=== PATIENT | female | born 1930 | race Caucasian/White ===

== ENCOUNTER 2018-11-27 10:31 | Inpatient (IN) | payer OTHER ==
[2018-11-27 11:34] LABS: Absolute Lymphocytes (CBC) 1.2 K/uL (0.7-4.9); Absolute Monocytes 0.8 K/uL (0.1-1.3); Absolute Neutrophil 9.3 K/uL (1.8-8.0); Basophils % 0.3 % (0-1.3); Eosinophils % 0.6 % (0-4.4); Hematocrit 35.1 % (36.0-45.0); Lymphocytes % 10.9 % (15.3-44.8); MPV 9.3 fL (7.6-11.3); Monocytes % 6.9 % (3.3-12.3); RBC Red Blood Cell Count 4.46 M/uL (3.86-4.86)
[2018-11-27 11:48] LABS: AST/SGOT 10 U/L (15-37); Alkaline Phosphatase 54 U/L (45-117); BUN Blood Urea Nitrogen 54 mg/dL (7-18); Bicarbonate 32 mmol/L (21-32); Bilirubin Direct 0.2 mg/dL (0-0.2); Bilirubin Total 0.5 mg/dL (0.2-1.0); Glucose Level 139 mg/dL (74-106); Lipase 177 U/L (73-393); Potassium 3.9 mmol/L (3.5-5.1); Protein, Total 6.3 g/dL (6.4-8.2); Sodium Level 136 mmol/L (136-145)
[2018-11-27 11:55] LABS: ALT/SGPT < 6 U/L (12-78)
[2018-11-27] MEDS ORDERED: ONDANSETRON 4 MG/2 ML VIAL ONE (12:03)
--- NOTE | 2018-11-27 13:08 | RAD REPORT ---
EXAM DESCRIPTION: CT - Abdomen Pelvis W Contrast - 11/27/2018 12:54 pm CLINICAL HISTORY: Abdominal pain, nausea and vomiting, constipation COMPARISON: None. TECHNIQUE: Biphasic, helical CT imaging of the abdomen and pelvis was performed following 100 ml non -ionic IV contrast. Oral contrast was given. All CT scans are performed using dose optimization technique as appropriate and may include automated exposure control or mA/KV adjustment according to patient size. FINDINGS: Scarring and minimal nodularity in each lung base not regarded as suspicious. No pneumotho rax or pleural effusion. No cardiomegaly or pericardial effusion. Mild diffuse fatty infiltration pattern involves the liver. No focal liver lesions seen. No primary p ancreatic or splenic process seen. Gallbladder is distended. Gallstones can be occult. No biliary cj e dilatation. Minimal adrenal nodularity present not regarded as significant. Symmetric renal function is seen with no hydronephrosis or suspicious renal mass. No pyelonephritis o r acute parenchymal process. Bladder is mostly contracted. Multiple phleboliths involves the pelvic f pavan. No gastric dilatation or gastric wall thickening. Oral CT contrast has reached the mid small bowel le angella. No duodenal dilatation or wall thickening. There is dilation of the small bowel from ligament of Treitz to the terminal ileum. Liquid stool fills the cecum. There is irregular circumferential wall thickening of the ascending colon extending to the right side transverse colon. Left side colon is mo stly decompressed. There is a mild diverticulosis pattern of the sigmoid colon. No free air or pneumatosis. Trace amount of free fluid in the cul de sac and adjacent to the liver ca psule. No hernia, mass or bulky lymphadenopathy. Advanced bony degenerative changes are present. Dense arterial tree calcifications present. IMPRESSION: Nonocclusive irregular circumferential wall thickening involving the ascending colon, he patic flexure and right side of the transverse colon. Liquid stool distends the cecum and there is dilated small bowel pattern from ligament of Treitz to t he terminal ileum. Colon finding is nonspecific. Right-sided colitis would be favored. Malignancy is not excluded but do es not typically extend over this length of colon. Small bowel dilatation is favored to be ileus from the colon process rather than small bowel obstruction. Small quantity of free fluid in the pelvis. No free air or surgically emergent finding.
--- NOTE | 2018-11-27 14:15 | EDPHYS ---
Physician Documentation [facility] Name: Claire Jameson Age: 88 yrs Sex: Female : 1930 Arrival Date: 11/27/2018 Time: 10:33 Bed 2 Private MD: Driss Melgoza ED Physician Richard Owens HPI: 11/27 14:09 This 88 yrs old Female presents to ER via Ambulatory with complaints of pm1 Abdominal Pain, Constipation, Vomiting. 14:09 The patient presents with abdominal pain that is diffuse. Onset: The symptoms/episode pm1 began/occurred 5 day(s) ago. The symptoms do not radiate. Associated signs and symptoms: Pertinent positives: constipation, vomiting, Pertinent negatives: chest pain, dysuria, fever, shortness of breath. The symptoms are described as achy. Modifying factors: The symptoms are alleviated by nothing, the symptoms are aggravated by food. Severity of pain: in the emergency department the pain is actually worse. The patient has experienced similar episodes in the past, several times. The patient has not recently seen a physician, the patient's primary care provider is Dr. Melgoza. Patient with constipation for 1 week and then started having some abdominal distention and pain with vomiting when trying to drink for the past 4 days. Patient took some Colace and mag citrate to resolve constipation. Had some diarrhea x 2 this AM. Historical: - Allergies: 10:49 No Known Allergies; bp - Home Meds: 10:49 Atenolol Oral [Active]; Hydrochlorothiazide Oral [Active]; bp - PMHx: 10:49 Hypertension; bp - Immunization history:: Adult Immunizations up to date. - Social history:: Smoking status: Patient/guardian denies using tobacco. - Ebola Screening: : Patient negative for fever greater than or equal to 101.5 degrees Fahrenheit, and additional compatible Ebola Virus Disease symptoms Patient denies exposure to infectious person Patient denies travel to an Ebola-affected area in the 21 days before illness onset No symptoms or risks identified at this time. ROS: 14:09 Constitutional: Negative for fever, chills, and weight loss, Eyes: Negative for injury, pm1 pain, redness, and discharge, ENT: Negative for injury, pain, and discharge, Neck: Negative for injury, pain, and swelling, Cardiovascular: Negative for chest pain, palpitations, and edema, Respiratory: Negative for shortness of breath, cough, wheezing, and pleuritic chest pain. 14:09 Back: Negative for injury and pain, : Negative for injury, bleeding, discharge, and swelling, MS/Extremity: Negative for injury and deformity, Skin: Negative for injury, rash, and discoloration, Neuro: Negative for headache, weakness, numbness, tingling, and seizure. 14:09 Abdomen/GI: Positive for abdominal pain, nausea and vomiting, constipation, diarrhea x 2 today. Exam: 14:09 Constitutional: This is a well developed, well nourished patient who is awake, alert, pm1 and in no acute distress. Head/Face: Normocephalic, atraumatic. Eyes: Pupils equal round and reactive to light, extra-ocular motions intact. Lids and lashes normal. Conjunctiva and sclera are non-icteric and not injected. Cornea within normal limits. Periorbital areas with no swelling, redness, or edema. ENT: Nares patent. No nasal discharge, no septal abnormalities noted. Tympanic membranes are normal and external auditory canals are clear. Oropharynx with no redness, swelling, or masses, exudates, or evidence of obstruction, uvula midline. Mucous membranes moist. Neck: Trachea midline, no thyromegaly or masses palpated, and no cervical lymphadenopathy. Supple, full range of motion without nuchal rigidity, or vertebral point tenderness. No Meningismus. Chest/axilla: Normal chest wall appearance and motion. Nontender with no deformity. No lesions are appreciated. Cardiovascular: Regular rate and rhythm with a normal S1 and S2. No gallops, murmurs, or rubs. Normal PMI, no JVD. No pulse deficits. Respiratory: Lungs have equal breath sounds bilaterally, clear to auscultation and percussion. No rales, rhonchi or wheezes noted. No increased work of breathing, no retractions or nasal flaring. Abdomen/GI: Soft, non-tender, with normal bowel sounds. No distension or tympany. No guarding or rebound. No evidence of tenderness throughout. Back: No spinal tenderness. No costovertebral tenderness. Full range of motion. Skin: Warm, dry with normal turgor. Normal color with no rashes, no lesions, and no evidence of cellulitis. MS/ Extremity: Pulses equal, no cyanosis. Neurovascular intact. Full, normal range of motion. 14:09 Neuro: Orientation: is normal, Motor: is normal, moves all fours. Vital Signs: 10:49 BP 149 / 53; Pulse 74; Resp 16; Temp 98.6; Pulse Ox 96% ; Weight 57.61 kg; Height 5 ft. bp 7 in. (170.18 cm); 11:36 BP 145 / 46; Pulse 67; Resp 14; Pulse Ox 100% ; bp 12:19 BP 140 / 51; Pulse 66; Resp 12; Pulse Ox 94% ; bp 14:00 BP 139 / 46; Pulse 67; Resp 14; Pulse Ox 97% ; bp 15:00 BP 140 / 45; Pulse 68; Resp 16; Pulse Ox 95% ; bp 16:00 BP 156 / 53; Pulse 70; Resp 14; Pulse Ox 97% ; bp 17:00 BP 136 / 51; Pulse 66; Resp 16; Pulse Ox 96% ; bp 10:49 Body Mass Index 19.89 (57.61 kg, 170.18 cm) bp MDM: 10:53 Patient medically screened. pm1 14:04 Data reviewed: vital signs. pm1 14:13 Counseling: I had a detailed discussion with the patient and/or guardian regarding: the pm1 historical points, exam findings, and any diagnostic results supporting the discharge/admit diagnosis, lab results, radiology results, the need for further work-up and treatment in the hospital. 15:31 Physician consultation: Torin Graves DO was called at 15:31, was contacted at 15:31, pm1 regarding admission, patient's condition, would like further tests performed, Procalcitonin, in the emergency department to see patient at 15:31. 11/27 11:01 Order name: Basic Metabolic Panel; Complete Time: 11:58 pm1 11/27 11:01 Order name: CBC with Diff; Complete Time: 11:55 pm1 11/27 11:01 Order name: Creatinine for Radiology; Complete Time: 11:55 pm1 11/27 11:01 Order name: Hepatic Function; Complete Time: 11:58 pm1 11/27 11:01 Order name: Lipase; Complete Time: 11:58 pm1 11/27 14:46 Order name: Urine Microscopic Only; Complete Time: 16:06 pm1 11/27 11:01 Order name: CT Abd/Pelvis - W/Contrast: PO and IV contrast; Complete Time: 13:12 pm1 11/27 14:46 Order name: Urine Culture pm11/27 14:53 Order name: Urine Dipstick--Ancillary (enter results); Complete Time: 16:06 eb 11/27 15:28 Order name: Procalcitonin pm11/27 11:01 Order name: IV Saline Lock; Complete Time: 11:31 pm1 11/27 11:01 Order name: Labs collected and sent; Complete Time: 11:31 pm11/27 12:00 Order name: Urine Dipstick-Ancillary (obtain specimen); Complete Time: 14:59 pm1 Administered Medications: 11:45 Drug: Zofran 4 mg Route: IVP; Site: right forearm; bp 12:18 Follow up: Response: Nausea is decreased bp 12:18 Drug: NS 0.9% 500 ml Route: IV; Rate: bolus; Site: right forearm; bp 13:00 Follow up: IV Status: Completed infusion; IV Intake: 500ml bp 14:20 Drug: NS 0.9% 1000 ml Route: IV; Rate: 100 ml/hr; Site: right antecubital; bp 14:20 Drug: Flagyl 500 mg Volume: 100 ml; Route: IVPB; Rate: 200 ml/hr; Infused Over: 30 bp mins; Site: right antecubital; 16:12 Follow up: IV Status: Completed infusion; IV Intake: 100ml bp 15:45 Drug: LevaQUIN 500 mg Volume: 100 ml; Route: IVPB; Infused Over: 60 mins; Site: right bp antecubital; Disposition: 11/27/18 14:14 Hospitalization ordered by Torin Graves for Inpatient Admission. Preliminary diagnosis are Dehydration, Constipation, Unspecified abdominal pain, Right sided colitis, Vomiting. - Bed requested for Telemetry/MedSurg (Inpatient). - Status is Inpatient Admission. bp - Condition is Stable. - Problem is new. - Symptoms have improved. UTI on Admission? No Signatures: Dispatcher [employer] EDMS Ze Ramos, THERESA CO[employer]INGS pm1 Danica Lorenzo, TORIE RN df Ron Herzog RN RN bp Corrections: (The following items were deleted from the chart) 14:17 14:14 Hospitalization Ordered by Torin Graves DO for Inpatient Admission. Preliminary pm1 diagnosis is Dehydration; Constipation; Unspecified abdominal pain. Bed requested for Telemetry/MedSurg (Inpatient). Status is Inpatient Admission. Condition is Stable. Problem is new. Symptoms have improved. UTI on Admission? No. pm1 17:09 14:17 11/27/2018 14:14 Hospitalization Ordered by Torin Graves DO for Inpatient df Admission. Preliminary diagnosis is Dehydration; Constipation; Unspecified abdominal pain; Right sided colitis; Vomiting. Bed requested for Telemetry/MedSurg (Inpatient). Status is Inpatient Admission. Condition is Stable. Problem is new. Symptoms have improved. UTI on Admission? No. pm1 18:11 17:09 11/27/2018 14:14 Hospitalization Ordered by Torin Graves DO for Inpatient bp Admission. Preliminary diagnosis is Dehydration; Constipation; Unspecified abdominal pain; Right sided colitis; Vomiting. Bed requested for Telemetry/MedSurg (Inpatient). Status is Inpatient Admission. Condition is Stable. Problem is new. Symptoms have improved. UTI on Admission? No. df
--- NOTE | 2018-11-27 14:15 | ER ---
Nurse's Notes [facility] Name: Claire Jameson Age: 88 yrs Sex: Female : 1930 Arrival Date: 11/27/2018 Time: 10:33 Bed 2 Private MD: Driss Melgoza Diagnosis: Dehydration;Constipation;Unspecified abdominal pain;Right sided colitis;Vomiting Presentation: 11/27 10:47 Presenting complaint: Patient states: NAUSEA AND VOMITING WITH DIFFUSE ABD PAIN AFTER bp TAKING COLACE AND MAG CITRATE TO RESOLVE CONSTIPATION. Transition of care: patient was not received from another setting of care. Onset of symptoms is unknown. Risk Assessment: Do you want to hurt yourself or someone else? Patient reports no desire to harm self or others. Initial Sepsis Screen: Does the patient meet any 2 criteria? No. Patient's initial sepsis screen is negative. Does the patient have a suspected source of infection? No. Patient's initial sepsis screen is negative. Care prior to arrival: None. 10:47 Method Of Arrival: Ambulatory bp 10:47 Acuity: ADALBERTO 3 bp Triage Assessment: 10:49 General: Appears in no apparent distress. comfortable, Behavior is calm, cooperative, bp appropriate for age. Pain: Complains of pain in DIFFUSE ABDOMEN. EENT: No deficits noted. Neuro: Level of Consciousness is awake, alert, obeys commands, Oriented to person, place, time, situation, Appropriate for age. Cardiovascular: No deficits noted. Respiratory: Airway is patent Respiratory effort is even, unlabored, Respiratory pattern is regular, symmetrical. GI: Abdomen is non-distended, Abd is soft X 4 quads Abdomen is tender to palpation X 4 quads. : No signs and/or symptoms were reported regarding the genitourinary system. Derm: No deficits noted. Musculoskeletal: Circulation, motion, and sensation intact. Range of motion: intact in all extremities. Historical: - Allergies: 10:49 No Known Allergies; bp - Home Meds: 10:49 Atenolol Oral [Active]; Hydrochlorothiazide Oral [Active]; bp - PMHx: 10:49 Hypertension; bp - Immunization history:: Adult Immunizations up to date. - Social history:: Smoking status: Patient/guardian denies using tobacco. - Ebola Screening: : Patient negative for fever greater than or equal to 101.5 degrees Fahrenheit, and additional compatible Ebola Virus Disease symptoms Patient denies exposure to infectious person Patient denies travel to an Ebola-affected area in the 21 days before illness onset No symptoms or risks identified at this time. Screenin:52 Abuse screen: Denies threats or abuse. Denies injuries from another. Nutritional bp screening: No deficits noted. Tuberculosis screening: No symptoms or risk factors identified. Fall Risk None identified. Assessment: 10:52 General: SEE TRIAGE NOTE. bp 11:36 Reassessment: PO CONTRAST COMPLETED, CT NOTIFIED. bp 12:19 Reassessment: CT PENDING, VS STABLE ON MONITOR. bp 14:00 GI: Bowel sounds present X 4 quads. bp 14:17 Reassessment: PER RAD, COLITIS VS ILEUS NOTED ON CT. ABX INFUSING. bp 16:00 Reassessment: ADMIT IN PROCESS, ADMIT MD AT B/S. bp 17:15 Reassessment: ADMIT ON HOLD DUE TO PT ACUITY ON RECEIVING FLOOR. bp 17:53 Reassessment: REPORT TO FRANCISCO VOGT. bp Vital Signs: 10:49 BP 149 / 53; Pulse 74; Resp 16; Temp 98.6; Pulse Ox 96% ; Weight 57.61 kg; Height 5 ft. bp 7 in. (170.18 cm); 11:36 BP 145 / 46; Pulse 67; Resp 14; Pulse Ox 100% ; bp 12:19 BP 140 / 51; Pulse 66; Resp 12; Pulse Ox 94% ; bp 14:00 BP 139 / 46; Pulse 67; Resp 14; Pulse Ox 97% ; bp 15:00 BP 140 / 45; Pulse 68; Resp 16; Pulse Ox 95% ; bp 16:00 BP 156 / 53; Pulse 70; Resp 14; Pulse Ox 97% ; bp 17:00 BP 136 / 51; Pulse 66; Resp 16; Pulse Ox 96% ; bp 10:49 Body Mass Index 19.89 (57.61 kg, 170.18 cm) bp ED Course: 10:33 Patient arrived in ED. rg4 10:33 Driss Melgoza DO is Private Physician. rg4 10:43 [facility]. pm1 10:43 Richard Owens MD is Attending Physician. pm1 10:47 Ron Herzog, TORIE is Primary Nurse. bp 10:48 Triage completed. bp 10:49 Arm band placed on. bp 10:52 Patient has correct armband on for positive identification. Placed in gown. Bed in low bp position. Call light in reach. Side rails up X2. Adult w/ patient. 11:20 Inserted saline lock: 20 gauge in right forearm, using aseptic technique. Blood bp collected. 12:53 CT completed. Patient tolerated procedure well. Patient moved to CT via stretcher. Patient moved back from CT. 12:57 CT Abd/Pelvis - W/Contrast: PO and IV contrast In Process Unspecified. EDMS 14:13 Torin Graves DO is Hospitalizing Provider. pm1 14:50 Urine collected: clean catch specimen, evens colored. dh3 17:12 No provider procedures requiring assistance completed. Patient admitted, IV remains in bp place. Administered Medications: 11:45 Drug: Zofran 4 mg Route: IVP; Site: right forearm; bp 12:18 Follow up: Response: Nausea is decreased bp 12:18 Drug: NS 0.9% 500 ml Route: IV; Rate: bolus; Site: right forearm; bp 13:00 Follow up: IV Status: Completed infusion; IV Intake: 500ml bp 14:20 Drug: NS 0.9% 1000 ml Route: IV; Rate: 100 ml/hr; Site: right antecubital; bp 14:20 Drug: Flagyl 500 mg Volume: 100 ml; Route: IVPB; Rate: 200 ml/hr; Infused Over: 30 bp mins; Site: right antecubital; 16:12 Follow up: IV Status: Completed infusion; IV Intake: 100ml bp 15:45 Drug: LevaQUIN 500 mg Volume: 100 ml; Route: IVPB; Infused Over: 60 mins; Site: right bp antecubital; Intake: 13:00 IV: 500ml; Total: 500ml. bp 16:12 IV: 100ml; Total: 600ml. bp Outcome: 14:14 Decision to Hospitalize by Provider. pm1 17:54 Admitted to Med/surg accompanied by tech, family with patient, via wheelchair, room bp 410, with chart, Report called to FRANCISCO VOGT 17:54 Condition: stable 17:54 Instructed on the need for admit. 18:11 Patient left the ED. bp Signatures: Dispatcher [employer] EDMS Tanisha Story Patrick, ETL APPLICATION DEVELOPER ETL APPLICATION DEVELOPER pm1 Kelsea Mcdonald rg4 Deborah Beauchamp dh3 Ron Herzog, RN RN bp
[2018-11-27] MEDS ORDERED: METRONIDAZOLE 500mg IVPB 500 MG/100 ML BAG IV ONE (14:35)
[2018-11-27] MEDS ORDERED: Levofloxacin500mg IV 500 MG/100 ML BAG IV ONE (14:35)
[2018-11-27] MEDS ORDERED: NA CHLORIDE 0.9% 1,000 ML ONE (14:36)
[2018-11-27 15:39] LABS: Urine Blood TRACE (NEG); Urine Glucose NEGATIVE (NEG); Urine Protein TRACE (NEG)
[2018-11-27 15:39] LABS: Urine Bacteria 20-50 /HPF (<20); Urine Culture Reflex Order NOT NEEDED; Urine Mucus 2+ /HPF (NONE SEEN)
--- NOTE | 2018-11-27 16:22 | P.HP ---
Certification for Inpatient Patient admitted to: Inpatient With expected LOS: >2 Midnights Patient will require the following post-hospital care: None Practitioner: I am a practitioner with admitting privileges, knowledge of patient current condition, hospital course, and medical plan of care. Services: Services provided to patient in accordance with Admission requirements found in Title 42 Section 412.3 of the Code of Federal Regulations Patient History Date of Service: 11/27/18 Primary Care Provider: Dr. Melgoza Reason for admission: Abdominal pain, nausea, vomiting and diarrhea History of Present Illness: 88-year-old female presented to the emergency room with multiple complaints. Patient reported nausea and vomiting since Saturday. She was not able to keep anything down. She reported some mild distention and constipation. Bloating was also noted. She took Colace and Mag citrate yesterday. She was to come to the ER but started to have diarrhea. Subjective fever noted. Patient came to the ER for further evaluation. In the ER patient evaluated. White count 11.4, hemoglobin 11.1. Sodium 136, potassium 2.9, BUN of 54, creatinine 1.36 with a GFR 36. Urinalysis shows possible UTI. CT scan shows suspected right-sided colitis with ileus. No bowel obstruction identified. Patient was admitted for treatment. When I saw the patient ER, she did not appear septic. Patient appeared comfortable. Patient reports no prior history of colonoscopy. She reports multiple members in the family with colon cancer. Patient with history of hypertension but is not taking her medication over the past week. Patient with reports no melena, hematemesis or rectal bleeding. Home medications list reviewed: Yes - Past Medical/Surgical History Diabetic: No -: Hypertension -: Hysterectomy Psychosocial/ Personal History: Patient is a . She has 3 children. - Family History Father -: Cancer (Colon cancer) Brother -: Cancer (Colon cancer) - Social History Smoking Status: Never smoker Alcohol use: No CD- Drugs: No Caffeine use: Yes Place of Residence: Home Review of Systems General: Weakness, As per HPI Eyes: Unremarkable ENT: Unremarkable Respiratory: Unremarkable Cardiovascular: Unremarkable Gastrointestinal: Nausea, Vomiting, Abdominal Pain, Diarrhea, As per HPI Genitourinary: Unremarkable Musculoskeletal: Unremarkable Neurological: Unremarkable Lymphatics: Unremarkable Physical Examination - Physical Exam General: Alert, In no apparent distress, Oriented x3, Cooperative HEENT: Atraumatic, Normocephalic, Other (Dry mucous membranes), EOMI Neck: Supple, No Thyromegaly Respiratory: Clear to auscultation bilaterally, Normal air movement Cardiovascular: Normal pulses, Regular rate/rhythm Gastrointestinal: Normal bowel sounds, Soft and benign, No masses, No rebound, No guarding, Distended (Minimal distention), Tenderness (Minimal tenderness to the right upper quadrant) Musculoskeletal: No erythema, No tenderness, No warmth Integumentary: No tenderness/swelling, No erythema, No warmth, No cyanosis Neurological: Normal speech, Normal strength at 5/5 x4 extr, Normal tone, Normal affect - Studies Laboratory Data (last 24 hrs) 11/27/18 11:18: Creatinine 1.38 H 11/27/18 11:18: WBC 11.4 H, Hgb 11.1 L, Hct 35.1 L, Plt Count 254 11/27/18 11:18: Sodium 136, Potassium 3.9, BUN 54 H, Creatinine 1.41 H, Glucose 139 H, Total Bilirubin 0.5, AST 10 L, ALT < 6 L, Alkaline Phosphatase 54, Lipase 177 Assessment and Plan - Plan Impression: Abdominal pain, nausea, vomiting and diarrhea secondary to right-sided colitis with possible ileus complicated with possible UTI Acute kidney injury likely due to related to dehydration Hypertension Plan: Abdominal pain, nausea, vomiting and diarrhea secondary to right-sided colitis with possible ileus complicated with possible UTI: Patient will be admitted. Will continue with IV fluids and antibiotic therapy-Cipro and Flagyl. Blood and urine cultures obtained. Will monitor closely. Will keep the patient NPO. Will consult surgery to further evaluate. Await recommendations from surgery prior to advancing her diet. Will provide IV PPI. Will continue monitor closely. Monitor serial examinations. Patient may require NG tube if with increased abdominal bloating, nausea and vomiting. If with worsening pain patient may require surgical intervention. Patient will need colonoscopy in 4- 6 weeks if her condition improves as there is a strong family history of colon cancer. Patient reports no prior colonoscopy. Acute kidney injury likely due to related to dehydration: Continue with IV fluids. Will monitor and adjust appropriately. Replace electrolytes. Hypertension: Will provide IV medication. Hold atenolol and hydrochlorothiazide. Discharge Plan: Home Plan to discharge in: Greater than 2 days - Advance Directives Does patient have a Living Will: No Does patient have a Durable POA for Healthcare: No - Code Status/Comfort Care Code Status Assessed: Yes (Patient full code.) Time Spent Managing Pts Care (In Minutes): 55
[2018-11-27] MEDS ORDERED: ACETAMINOPHEN 500 MG TAB PO PRN (18:14)
[2018-11-27] MEDS ORDERED: MORPHINE 2 MG/ML SYR IV PRN (18:14)
[2018-11-27] MEDS ORDERED: ACETAMINOPHEN 650MG/RECT SUPP PR PRN (18:14)
[2018-11-27] MEDS: NA CHLORIDE 0.9% 1,000 ML IV SCH (18:25)
[2018-11-27] MEDS ORDERED: METRONIDAZOLE 500mg IVPB 500 MG/100 ML BAG IV SCH (18:37)
[2018-11-27] MEDS ORDERED: ENOXAPARIN 40 MG/0.4 ML SQ SCH (18:45)
[2018-11-27] MEDS: ENOXAPARIN 30 MG/0.3 ML SQ SCH (18:46)
[2018-11-27 19:47] LABS: Ferritin 21.8 ng/mL (8-388); Thyroid Stimulating Hormone 0.081 uIU/mL (0.360-3.740)
[2018-11-27] MEDS ORDERED: Ciprofloxacin 200mg IV 200 MG/100 ML IV.SOLN. IV SCH (21:00)
[2018-11-27] MEDS ORDERED: FAMOTIDINE 20 MG/2 ML VIAL IV ONE (21:00)
[2018-11-27] MEDS ORDERED: FAMOTIDINE 20 MG/2 ML VIAL IV SCH (21:00)
[2018-11-28 00:54] VITALS: BMI 21.8
[2018-11-28] MEDS: METRONIDAZOLE 500mg IVPB 500 MG/100 ML BAG IV SCH ×3 (02:00→17:03)
[2018-11-28] MEDS: NA CHLORIDE 0.9% 1,000 ML IV SCH ×3 (02:40→13:42)
[2018-11-28] MEDS: ONDANSETRON 4 MG/2 ML VIAL IV PRN (04:10)
[2018-11-28 05:54] LABS: Absolute Lymphocytes (CBC) 0.9 K/uL (0.7-4.9); Absolute Monocytes 0.9 K/uL (0.1-1.3); Absolute Neutrophil 6.3 K/uL (1.8-8.0); Basophils % 0.6 % (0-1.3); Eosinophils % 2.6 % (0-4.4); Lymphocytes % 11.3 % (15.3-44.8); MPV 9.1 fL (7.6-11.3); Monocytes % 10.6 % (3.3-12.3)
[2018-11-28 06:10] LABS: Magnesium 2.9 mg/dL (1.8-2.4); Potassium 3.4 mmol/L (3.5-5.1)
[2018-11-28] MEDS ORDERED: KCL 20 MEQ/100 mL IVPB 20 MEQ/100 ML BAG IV SCH (07:30)
[2018-11-28] MEDS ORDERED: NA CHLORIDE 0.9% 1,000 ML with POTASSIUM CL 40 MEQ IV SCH ×2 (08:00)
[2018-11-28] MEDS: Ciprofloxacin 200mg IV 200 MG/100 ML IV.SOLN. IV SCH (08:31)
[2018-11-28] MEDS: ENOXAPARIN 30 MG/0.3 ML SQ SCH (08:31)
[2018-11-28] MEDS ORDERED: FAMOTIDINE 20 MG/2 ML VIAL IV SCH (09:00)
--- NOTE | 2018-11-28 13:58 | P.PN ---
Date of Service: 11/28/18 S: Patient apparently feel somewhat better today. Vital signs are stable. Having diarrhea. O: Patient is shower, will recheck earlier today or tomorrow. A: Partial obstruction appears to be relieved P: Continue current therapy, patient will require a colonoscopy at some point. Probably as an outpatient.
--- NOTE | 2018-11-28 16:06 | P.PN ---
Subjective Date of Service: 11/28/18 Primary Care Provider: Dr. Melgoza Chief Complaint: Abdominal pain, nausea, vomiting and diarrhea Subjective: Other (Patient improving. Less diarrhea. No significant nausea vomiting.) Physical Examination - Vital Signs Temperature: 98.9 F Blood Pressure: 140/60 Pulse: 71 Respirations: 18 Pulse Ox (%): 96 - Physical Exam General: Alert, In no apparent distress, Oriented x3, Cooperative HEENT: Atraumatic Neck: Supple Respiratory: Clear to auscultation bilaterally, Normal air movement Cardiovascular: Normal pulses, Regular rate/rhythm Gastrointestinal: Normal bowel sounds, Soft and benign, Non-distended, No masses , No rebound, No guarding, Tenderness (Less pain throughout) Musculoskeletal: No erythema, No tenderness, No warmth Integumentary: No tenderness/swelling, No erythema, No warmth, No cyanosis Neurological: Normal speech, Normal strength at 5/5 x4 extr, Normal tone, Normal affect - Studies Medications List Reviewed: Yes Assessment & Plan Discharge Plan: Home Plan to discharge in: 48 Hours Physician Review Additional Text: Impression: Abdominal pain, nausea, vomiting and diarrhea secondary to right-sided colitis with possible ileus complicated with possible UTI Acute kidney injury likely due to related to dehydration Hypertension Plan: Abdominal pain, nausea, vomiting and diarrhea secondary to right-sided colitis with possible ileus complicated with possible UTI: Patient continues to improve. Continue IV fluids and antibiotic therapy. Blood and urine cultures obtained. Stool cultures also obtained. Case discussed with surgery. Will slowly advance diet. Encourage ambulation with physical therapy. Patient will need colonoscopy in 4-6 weeks if her condition improves as there is a strong family history of colon cancer. Patient reports no prior colonoscopy. Acute kidney injury likely due to related to dehydration: This continues to improve Continue with IV fluids. Will monitor and adjust appropriately. Replace electrolytes. Hypertension: Will start low-dose carvedilol. Discontinue atenolol/ hydrochlorothiazide Time Spent Managing Pts Care (In Minutes): 55
[2018-11-28] MEDS: CARVEDILOL 3.125 MG TAB PO SCH (17:03)
[2018-11-29] MEDS: METRONIDAZOLE 500mg IVPB 500 MG/100 ML BAG IV SCH ×3 (00:08→17:00)
[2018-11-29] MEDS: NA CHLORIDE 0.9% 1,000 ML IV SCH (00:41)
[2018-11-29 05:02] LABS: Absolute Monocytes 0.5 K/uL (0.1-1.3); Absolute Neutrophil 2.9 K/uL (1.8-8.0); Basophils % 0.6 % (0-1.3); Eosinophils % 7.3 % (0-4.4); Hematocrit 32.6 % (36.0-45.0); Lymphocytes % 20.7 % (15.3-44.8); MPV 9.3 fL (7.6-11.3); Monocytes % 10.4 % (3.3-12.3); RBC Red Blood Cell Count 4.05 M/uL (3.86-4.86)
[2018-11-29] MEDS: ONDANSETRON 4 MG/2 ML VIAL IV PRN (05:03)
[2018-11-29] MEDS: CARVEDILOL 3.125 MG TAB PO SCH (05:03)
[2018-11-29 05:26] LABS: Magnesium 2.5 mg/dL (1.8-2.4); Potassium 3.7 mmol/L (3.5-5.1)
[2018-11-29] MEDS ORDERED: FAMOTIDINE 20 MG TAB PO SCH (09:00)
[2018-11-29] MEDS ORDERED: MULTIVIT W/ MINERAL TAB PO SCH (09:00)
[2018-11-29] MEDS ORDERED: POTASSIUM CL SA 10 MEQ TAB PO ONE (09:00)
--- NOTE | 2018-11-29 10:30 | P.PN ---
Subjective Date of Service: 11/29/18 Primary Care Provider: Dr. Melgoza Chief Complaint: Abdominal pain, nausea, vomiting and diarrhea Subjective: Improving (Patient tolerating her diet. Diarrhea improved.) Physical Examination - Vital Signs Temperature: 98.4 F Blood Pressure: 169/70 Pulse: 68 Respirations: 16 Pulse Ox (%): 95 - Physical Exam General: Alert, In no apparent distress, Oriented x3, Cooperative HEENT: Atraumatic Neck: Supple Respiratory: Clear to auscultation bilaterally, Normal air movement Cardiovascular: Normal pulses, Regular rate/rhythm Gastrointestinal: Normal bowel sounds, Soft and benign, Non-distended, No tenderness, No masses, No rebound, No guarding Musculoskeletal: No erythema, No tenderness, No warmth Integumentary: No tenderness/swelling, No erythema, No warmth, No cyanosis Neurological: Normal speech, Normal strength at 5/5 x4 extr, Normal tone, Normal affect - Studies Microbiology Data (last 24 hrs): 11/27/18 14:40 Clean Catch Urine [place] Count - Final BETWEEN 10,000 & 100,000 CFU/ML 11/27/18 14:40 Clean Catch Urine - Final Escherichia Coli Medications List Reviewed: Yes Assessment & Plan Discharge Plan: Home Plan to discharge in: 24 Hours Physician Review Additional Text: Impression: Abdominal pain, nausea, vomiting and diarrhea secondary to right-sided colitis with possible ileus complicated with UTI, culture positive for E coli Acute kidney injury likely due to related to dehydration Hypertension Anemia with iron and B12 deficiency Possible hyperthyroidism Plan: Abdominal pain, nausea, vomiting and diarrhea secondary to right-sided colitis with possible ileus complicated with UTI, culture positive for E coli: Patient continues to improve. Continue IV antibiotic therapy and fluids. Will advance diet. Encourage ambulation with physical therapy. Encourage incentive spirometer. Anticipate discharge in the next 24 hr. No surgical intervention required at this time. Patient will need colonoscopy in 4-6 weeks to further evaluate especially with her strong family history of colon cancer. Patient with no prior colonoscopy. Acute kidney injury likely due to related to dehydration: Improved. Continue with IV fluids. Will monitor and adjust electrolytes. Hypertension: Continue to monitor and adjust carvedilol. Discontinue atenolol/ hydrochlorothiazide Anemia with iron and B12 deficiency: Will start iron and B12 supplementation. Will monitor closely. Possible hyperthyroidism: Will recommend for lab-tsh and free T4 to be rechecked as an outpatient. If still abnormal patient will require endocrinology evaluation. Time Spent Managing Pts Care (In Minutes): 55
[2018-11-29] MEDS: NACHLORIDE 0.45% 1,000 ML IV SCH (10:33)
[2018-11-29] MEDS: LACTOBACILLUS/ACIDOPHILUS TAB PO SCH ×2 (10:36→21:42)
[2018-11-29] MEDS: CYANOCOBALAMIN 1,000 MCG TAB PO SCH (10:36)
[2018-11-29] MEDS: ENOXAPARIN 30 MG/0.3 ML SQ SCH (10:41)
[2018-11-29] MEDS: Ciprofloxacin 200mg IV 200 MG/100 ML IV.SOLN. IV SCH (12:24)
--- NOTE | 2018-11-29 16:28 | P.PN ---
Date of Service: 11/29/18 S: Patient continues to improve. Still having some diarrhea. Denies any abdominal pain at this time. Tolerating the diet she is on. O: Abdomen remains soft, vital signs are stable, white cell count has resolve A: She is much improved P: Patient appears to be improving. Anticipate patient discharge most likely with home health at some point. She needs a colonoscopy in 4-6 weeks after this inflammatory process has resolved.
[2018-11-29] MEDS: CARVEDILOL 6.25 MG TAB PO SCH (17:01)
[2018-11-29] MEDS: HYDRALAZINE HCL 20 MG/ML VIAL IV PRN (17:40)
[2018-11-29] MEDS: FAMOTIDINE 20 MG TAB PO SCH (21:42)
[2018-11-30] MEDS: METRONIDAZOLE 500mg IVPB 500 MG/100 ML BAG IV SCH ×2 (00:27→09:44)
[2018-11-30] MEDS: NACHLORIDE 0.45% 1,000 ML IV SCH (00:29)
[2018-11-30 05:09] LABS: Absolute Lymphocytes (CBC) 1.6 K/uL (0.7-4.9); Absolute Monocytes 0.7 K/uL (0.1-1.3); Basophils % 0.4 % (0-1.3); Eosinophils % 6.6 % (0-4.4); Hematocrit 34.1 % (36.0-45.0); Lymphocytes % 23.4 % (15.3-44.8); MPV 9.2 fL (7.6-11.3); Monocytes % 10.1 % (3.3-12.3); RBC Red Blood Cell Count 4.29 M/uL (3.86-4.86)
[2018-11-30] MEDS: HYDRALAZINE HCL 20 MG/ML VIAL IV PRN (05:23)
[2018-11-30 05:33] LABS: Magnesium 2.3 mg/dL (1.8-2.4); Potassium 3.8 mmol/L (3.5-5.1)
[2018-11-30] MEDS: CARVEDILOL 6.25 MG TAB PO SCH (06:47)
[2018-11-30] MEDS ORDERED: FE SULF/FA/VIT B COMP & C TAB PO SCH (08:00)
[2018-11-30 08:49] VITALS: BP 122/59; TEMP 96.9
[2018-11-30] MEDS ORDERED: POTASSIUM CL SA 10 MEQ TAB PO ONE (09:00)
--- NOTE | 2018-11-30 09:19 | P.DS ---
Admission Date: 11/27/18 Discharge Date: 11/30/18 Primary Care Provider: Dr. Melgoza Disposition: ROUTINE DISCHARGE Discharge Condition: GOOD Reason for Admission: Abdominal pain, nausea, vomiting and diarrhea Consultations: Surgery-Dr. Grant Procedures: CT scan: COMPARISON: None. TECHNIQUE: Biphasic, helical CT imaging of the abdomen and pelvis was performed following 100 ml non-ionic IV contrast. Oral contrast was given. All CT scans are performed using dose optimization technique as appropriate and may include automated exposure control or mA/KV adjustment according to patient size. FINDINGS: Scarring and minimal nodularity in each lung base not regarded as suspicious. No pneumothorax or pleural effusion. No cardiomegaly or pericardial effusion. Mild diffuse fatty infiltration pattern involves the liver. No focal liver lesions seen. No primary pancreatic or splenic process seen. Gallbladder is distended. Gallstones can be occult. No biliary tree dilatation. Minimal adrenal nodularity present not regarded as significant. Symmetric renal function is seen with no hydronephrosis or suspicious renal mass. No pyelonephritis or acute parenchymal process. Bladder is mostly contracted. Multiple phleboliths involves the pelvic floor. No gastric dilatation or gastric wall thickening. Oral CT contrast has reached the mid small bowel level. No duodenal dilatation or wall thickening. There is dilation of the small bowel from ligament of Treitz to the terminal ileum. Liquid stool fills the cecum. There is irregular circumferential wall thickening of the ascending colon extending to the right side transverse colon. Left side colon is mostly decompressed. There is a mild diverticulosis pattern of the sigmoid colon. No free air or pneumatosis. Trace amount of free fluid in the cul de sac and adjacent to the liver capsule. No hernia, mass or bulky lymphadenopathy. Advanced bony degenerative changes are present. Dense arterial tree calcifications present. IMPRESSION: Nonocclusive irregular circumferential wall thickening involving the ascending colon, hepatic flexure and right side of the transverse colon. Liquid stool distends the cecum and there is dilated small bowel pattern from ligament of Treitz to the terminal ileum. Colon finding is nonspecific. Right-sided colitis would be favored. Malignancy is not excluded but does not typically extend over this length of colon. Small bowel dilatation is favored to be ileus from the colon process rather than small bowel obstruction. Small quantity of free fluid in the pelvis. No free air or surgically emergent finding. Medical problem list: Abdominal pain, nausea, vomiting and diarrhea secondary to right-sided colitis complicated with UTI, culture positive for E coli Acute kidney injury likely due to related to dehydration Hypertension Anemia with iron and B12 deficiency Possible hyperthyroidism Brief History of Present Illness: 88-year-old female presented to the emergency room with multiple complaints. Patient reported nausea and vomiting since Saturday. She was not able to keep anything down. She reported some mild distention and constipation. Bloating was also noted. She took Colace and Mag citrate yesterday. She was to come to the ER but started to have diarrhea. Subjective fever noted. Patient came to the ER for further evaluation. In the ER patient evaluated. White count 11.4, hemoglobin 11.1. Sodium 136, potassium 2.9, BUN of 54, creatinine 1.36 with a GFR 36. Urinalysis shows possible UTI. CT scan shows suspected right-sided colitis with ileus. No bowel obstruction identified. Patient was admitted for treatment. When I saw the patient ER, she did not appear septic. Patient appeared comfortable. Patient reports no prior history of colonoscopy. She reports multiple members in the family with colon cancer. Patient with history of hypertension but is not taking her medication over the past week. Patient with reports no melena, hematemesis or rectal bleeding. Hospital Course: Patient presented with abdominal pain, nausea, vomiting and diarrhea secondary to right-sided colitis and UTI. CT scan reviewed. No obstruction was identified. Patient was admitted for treatment. Patient received IV fluids and antibiotic therapy. Surgery was also consulted. No surgical intervention was required. C diff culture negative. Urine culture positive for E coli. The patient continued to do well. At discharge she was able tolerate her diet. No significant abdominal pain noted at discharge. At discharge will continue with Cipro 500 mg 1 pill twice daily and Flagyl 500 mg 3 times a day for 7 days. She is to continue with a soft GI diet. Recommend for the patient to establish care with GI for colonoscopy in 4-6 weeks to further evaluate. Patient with strong family history of colon cancer. Colon cancer will need to be ruled out. Patient also had acute renal injury likely related to her colitis and UTI. This improved with IV fluids. Continue with good oral hydration at home. Patient with hypertension. Atenolol and hydrochlorothiazide discontinued. New medication includes carvedilol. At discharge she will continue with carvedilol 6.25 mg 1 pill twice daily. Recommend to maintain blood pressures less 150/80. Further adjustment can be done by her PCP. Patient also found to be anemic. Iron and B12 deficiency identified. At discharge she will continue with multi vitamin with iron along with B12 supplementation. Patient will need a follow up with GI as an outpatient for colonoscopy and possible EGD evaluation to further address. Recommend to recheck lab-CBC in 2-4 weeks to monitor her progress. Patient found to have abnormal tsh and free T4. Possible hyperthyroidism identified. Recommend to recheck lab-tsh and free T4 in 2-4 weeks. If still abnormal patient will require endocrinology evaluation to further assess and possibly treat. Vital Signs/Physical Exam: Temp Pulse Resp BP Pulse Ox 96.9 F 77 18 122/59 L 95 11/30/18 08:00 11/30/18 08:00 11/30/18 08:00 11/30/18 08:00 11/30/18 08:00 General: Alert, In no apparent distress, Oriented x3, Cooperative HEENT: Atraumatic Neck: Supple Respiratory: Clear to auscultation bilaterally, Normal air movement Cardiovascular: Normal pulses, Regular rate/rhythm Gastrointestinal: Normal bowel sounds, Soft and benign, Non-distended, No ascites, No tenderness, No masses, No rebound, No guarding Musculoskeletal: No contractures, No erythema, No tenderness, No warmth Integumentary: No tenderness/swelling, No erythema, No warmth, No cyanosis Neurological: Normal speech, Normal strength at 5/5 x4 extr, Normal tone, Normal affect Laboratory Data at Discharge: WBC 6.7 K/uL (4.3-10.9) D 11/30/18 04:54 Hgb 10.8 g/dL (12.0-15.0) L 11/30/18 04:54 Hct 34.1 % (36.0-45.0) L 11/30/18 04:54 Plt Count 255 K/uL (152-406) D 11/30/18 04:54 Sodium 141 mmol/L (136-145) 11/30/18 04:54 Potassium 3.8 mmol/L (3.5-5.1) 11/30/18 04:54 BUN 13 mg/dL (7-18) 11/30/18 04:54 Creatinine 0.65 mg/dL (0.55-1.3) 11/30/18 04:54 Glucose 101 mg/dL (74-106) 11/30/18 04:54 Magnesium 2.3 mg/dL (1.8-2.4) 11/30/18 04:54 Total Bilirubin 0.5 mg/dL (0.2-1.0) 11/27/18 11:18 AST 10 U/L (15-37) L 11/27/18 11:18 ALT < 6 U/L (12-78) L 11/27/18 11:18 Alkaline Phosphatase 54 U/L (45-117) 11/27/18 11:18 Lipase 177 U/L (73-393) 11/27/18 11:18 Home Medications: Cholecalciferol (Vitamin D3) [Vitamin D 5,000 IU Cap*] 1 cap PO DAILY 11/28/18 Carvedilol [Coreg*] 6.25 mg PO BID 6AM 6PM #60 tab 11/30/18 Ciprofloxacin HCl [Cipro 500 MG Tablet] 500 mg PO BID #14 tab 11/30/18 Cyanocobalamin [Vitamin B-12*] 1,000 mcg PO DAILY #30 tab 11/30/18 Iron/FA/Vit B-Com W/C [Hemocyte Plus*] 1 tab PO DAILY WITH BREAKFAST #30 tab Lactobacillus Acidophilus [Probiotic Acidophilus] 1 each PO BID #60 tablet 11/30 metroNIDAZOLE [Flagyl] 500 mg PO Q8H #21 tablet 11/30/18 New Medications: Carvedilol [Coreg*] 6.25 mg PO BID 6AM 6PM #60 tab Ciprofloxacin HCl [Cipro 500 MG Tablet] 500 mg PO BID #14 tab Cyanocobalamin [Vitamin B-12*] 1,000 mcg PO DAILY #30 tab Iron/FA/Vit B-Com W/C [Hemocyte Plus*] 1 tab PO DAILY WITH BREAKFAST #30 tab Lactobacillus Acidophilus [Probiotic Acidophilus] 1 each PO BID #60 tablet metroNIDAZOLE [Flagyl] 500 mg PO Q8H #21 tablet Patient Discharge Instructions: 1. Patient will follow up with her PCP in 1 week to follow up this hospitalization. 2. The patient presented with abdominal pain, nausea, vomiting and diarrhea secondary to right-sided colitis and UTI. CT scan reviewed. No obstruction was identified. Patient was admitted for treatment. Patient received IV fluids and antibiotic therapy. Surgery was also consulted. No surgical intervention was required. C diff culture negative. Urine culture positive for E coli. The patient continued to do well. At discharge she was able tolerate her diet. No significant abdominal pain noted at discharge. At discharge will continue with Cipro 500 mg 1 pill twice daily and Flagyl 500 mg 3 times a day for 7 days. She is to continue with a soft GI diet. Recommend for the patient to establish care with GI for colonoscopy in 4-6 weeks to further evaluate. Patient with strong family history of colon cancer. Colon cancer will need to be ruled out. 3. Patient also had acute renal injury likely related to her colitis and UTI. This improved with IV fluids. Continue with good oral hydration at home. 4. Patient with hypertension. Atenolol and hydrochlorothiazide discontinued. New medication includes carvedilol. At discharge she will continue with carvedilol 6.25 mg 1 pill twice daily. Recommend to maintain blood pressures less 150/80. Further adjustment can be done by her PCP. 5. Patient also found to be anemic. Iron and B12 deficiency identified. At discharge she will continue with multi vitamin with iron along with B12 supplementation. Patient will need a follow up with GI as an outpatient for colonoscopy and possible EGD evaluation to further address. Recommend to recheck lab-CBC in 2-4 weeks to monitor her progress. 6. Patient found to have abnormal tsh and free T4. Possible hyperthyroidism identified. Recommend to recheck lab-tsh and free T4 in 2-4 weeks. If still abnormal patient will require endocrinology evaluation to further assess and possibly treat. Diet: GI soft Activity: Ad olga Time spent managing pt's care (in minutes): 55
[2018-11-30] MEDS: FAMOTIDINE 20 MG TAB PO SCH (09:43)
[2018-11-30] MEDS: CYANOCOBALAMIN 1,000 MCG TAB PO SCH (09:43)
[2018-11-30] MEDS: LACTOBACILLUS/ACIDOPHILUS TAB PO SCH (09:43)
[2018-11-30] MEDS: ENOXAPARIN 30 MG/0.3 ML SQ SCH (09:44)
[2018-11-30] MEDS: Ciprofloxacin 200mg IV 200 MG/100 ML IV.SOLN. IV SCH (10:56)
[2018-11-30 10:59] VITALS: O2SAT 97
== END 2018-11-30 12:25 | disposition home or self-care (01) | DRG 392 ==
LOC: ER 10:31 → ERHOLD 15:43 → 4TH 17:55
PROVIDERS: ADMIT Family Medicine; ATTEND Family Medicine
DX: K52.9 Noninfective gastroenteritis and colitis, unspecified (principal); N39.0 Urinary tract infection, site not specified; N17.9 Acute kidney failure, unspecified; B96.20 Unspecified Escherichia coli [E. coli] as the cause of diseases classified elsewhere; E86.0 Dehydration; I10 Essential (primary) hypertension; D50.9 Iron deficiency anemia, unspecified; E53.8 Deficiency of other specified B group vitamins; E05.90 Thyrotoxicosis, unspecified without thyrotoxic crisis or storm; Z80.0 Family history of malignant neoplasm of digestive organs
CPT/HCPCS: 36415; 74177; 80048; 80076; 81003; 81015; 82607; 82728; 83540; 83690; 83735; 84145; 84439; 84443; 84466; 85025; 87040; 87045; 87046; 87077; 87086; 87088; 87186; 87493; 97116; 97163; 99285; J0360; J0744; J1650; J2405; J7030; Q9967